=== PATIENT | female | born 1955 | race Caucasian/White ===

== ENCOUNTER 2018-08-11 10:43 | Emergency (ER) | payer OTHER ==
[~2018-08-11] VITALS: Ht 162.6 cm; Wt 75.0 kg
[2018-08-11] MEDS ORDERED: SODIUM CHLORIDE 0.9% 1,000 ML IV ONE (11:05)
[2018-08-11] MEDS ORDERED: KETOROLAC 30MG/ML VIAL IV STA (11:05)
[2018-08-11] MEDS ORDERED: METOCLOPRAMIDE HCL 10MG/2ML VIAL IV ONE (11:15)
[2018-08-11] MEDS ORDERED: MECLIZINE 25MG TABLET PO ONE (11:15)
[2018-08-11 14:14] VITALS: BP 122/70
== END 2018-08-11 14:15 | disposition home or self-care (01) ==
LOC: ER 11:08
DX: R42 Dizziness and giddiness (principal); M75.31 Calcific tendinitis of right shoulder; Z88.6 Allergy status to analgesic agent
CPT/HCPCS: 73030; 96361; 96374; 96375; 99283; J1885; J2765; J7030; J8597